=== PATIENT | female | born 1990 | race Caucasian/White ===

== ENCOUNTER 2017-11-05 21:55 | Emergency (ER) | payer OTHER, MEDICAID ==
--- NOTE | 2017-11-05 22:03 | UC ---
Dizzy HPI HPI Summary: URI x 1 week. Now with vertigo since tonight. C/O right ear pain with noise when blowing her nose. Some congestion but no fevers sweats or chills. - History Of Current Complaint Stated Complaint: VERTIGO Time Seen by Provider: 11/05/17 21:56 Hx Obtained From: Patient Hx Last Menstrual Period: 10/25/2017 ?: No Onset/Duration: Sudden Onset Timing: Constant Severity Initially: Severe Severity Currently: Moderate Character: Head Spinning Aggravating Factor(s): Position Change Alleviating Factor(s): Nothing Associated Signs And Symptoms: Positive: Nausea, Vomiting - Risk Factors Cardiac Risk Factors: Negative CVA Risk Factor: Negative - Allergies/Home Medications Allergies/Adverse Reactions: Allergies Allergy/AdvReac Type Severity Reaction Status Date / Time No Known Allergies Allergy Verified 11/05/17 22:08 PMH/Surg Hx/FS Hx/Imm Hx Previously Healthy: Yes - Family History Known Family History: Positive: Diabetes - Social History Occupation: Employed Full-time Lives: With Family Smoking Status (MU): Never Smoked Tobacco Have You Smoked in the Last Year: No Review of Systems Gastrointestinal: Vomiting, Nausea Neurological: Other - Vertigo Is Patient Immunocompromised?: No All Other Systems Reviewed And Are Negative: Yes Physical Exam Triage Information Reviewed: Yes Appearance: Well-Nourished, Ill-Appearing - Very pale, Pain Distress Vital Signs Reviewed: Yes ENT: Positive: Pharynx normal, TMs normal Neck exam: Normal Respiratory Exam: Normal Cardiovascular Exam: Normal Abdomen Description: Positive: Nontender, No Organomegaly Musculoskeletal Exam: Normal Neurological: Positive: Other: - unable to move head due to the vertigo. Psychological Exam: Normal Skin Exam: Normal Dizzy Course/Dx - Differential Dx/Diagnosis Differential Diagnosis/HQI/PQRI: Benign Paroxysmal Positional Vertigo, Labyrinthitis, Meniere's Disease, Transient Ischemic Attack Provider Diagnoses: Acute Labyrinthitis Discharge - Sign-Out/Discharge Documenting (check all that apply): Discharge - Discharge Plan Condition: Stable Disposition: HOME Prescriptions: Meclizine HCl [Dramamine Less Drowsy] 25 mg PO QID PRN #60 tablet PRN Reason: Vertigo predniSONE TAB* [Deltasone TAB*] 20 mg PO DAILY #18 tab Prochlorperazine SUPP* [Compazine Supp*] 25 mg [place] Q12H PRN #12 supp PRN Reason: Nausea/Vomiting Patient Education Materials: Labyrinthitis (ED), Prochlorperazine (Into the rectum), Meclizine (By mouth), Prednisone (By mouth) Additional Instructions: If you are not improving and cannot keep fluids down, you may need to go to the ER for admission for IV hydration. - Billing Disposition and Condition Condition: STABLE Disposition: HOME
[2017-11-05] MEDS ORDERED: Prochlorperazine SUPP* 25 MG SUPP PR ONE (22:17)
[2017-11-05] MEDS ORDERED: Meclizine TAB* 12.5 MG PO ONE (22:17)
[2017-11-05] MEDS ORDERED: predniSONE TAB* 20 MG PO ONE (22:19)
== END 2017-11-05 22:51 | disposition home or self-care (01) ==
LOC: UCCORT 21:55
DX: H83.09 Labyrinthitis, unspecified ear (principal)
CPT/HCPCS: 99202; A9270-GY; G0463; J7512